=== PATIENT | female | born 1965 | race African-American/Black ===

== ENCOUNTER 2017-08-17 12:23 | Observation (INO) | payer OTHER ==
--- NOTE | 2017-08-17 12:51 | PDOC ---
History of Present Illness - General Chief Complaint: Chest Pain Stated Complaint: CHEST PAIN Time Seen by Provider: 08/17/17 12:51 - History of Present Illness Initial Comments: 08/17/17 15:34 " The patient is a 52 year old female, with significant past medical history of HTN, partial mastectomy, who presents to the emergency room complaining of 2 weeks of intermittent chest pain and SOB. Two weeks ago, she visited her PCP, Dr. Giovany Barrera, in the office for chest pain and was told that she had an enlarged heart. She was told to follow up with cardiology (which she has not done yet) and was given omeprazole because the pain felt like gas. The chest pain resolved until two nights ago, when she experienced 1 episode of chest pain across the whole chest that went away after a couple of minutes. Around 3: 00am this morning, the chest pain woke her up from sleep and has been constant since. It feels like a pressure across her whole chest and is nonradiating. The pain is exacerbated when taking a deep breath. She notes that she has also been experiencing SOB that occurs when walking, which she notes is very unusual for her as she does a lot of walking. She denies lower extremity swelling, but notes that her arms are more puffy than usual. Denies fever, chills, sweats, nausea, vomiting. Denies palpitations. Denies cough Denies leg swelling. Denies recent travel. Allergies: penicillin, seasonal allergies Social history: tobacco use. Family history: Mother had an MO in her 30s. Maternal grandmother also had heart disease. PCP: Dr. Giovany Barrera " Past History - Past Medical History Allergies/Adverse Reactions: Allergies Allergy/AdvReac Type Severity Reaction Status Date / Time Penicillins Allergy Severe Difficulty Verified 08/17/17 12:35 Breathing Home Medications: Ambulatory Orders Telmisartan [Micardis] 80 mg PO DAILY 12/27/12 Omeprazole 20 mg PO DAILY 08/17/17 Anemia: No Asthma: No Cancer: Yes (R BREAST) Cardiac Disorders: No CVA: No COPD: No CHF: No Dementia: No Diabetes: No GI Disorders: No Disorders: No HTN: Yes Hypercholesterolemia: No Liver Disease: No Seizures: No Thyroid Disease: Yes - Surgical History Abdominal Surgery: No Appendectomy: No Cardiac Surgery: Yes Lung Surgery: No Neurologic Surgery: No - Immunization History Immunization Up to Date: Yes - Suicide/Smoking/Psychosocial Hx Smoking Status: Yes Smoking History: Current every day smoker Have you smoked in the past 12 months: No Number of Cigarettes Smoked Daily: 3 Information on smoking cessation initiated: No 'Breaking Loose' booklet given: 03/13/13 Hx Alcohol Use: Yes (SOCIAL) Drug/Substance Use Hx: No Substance Use Type: Alcohol Hx Substance Use Treatment: No Review of Systems - Review of Systems Comments:: 08/17/17 15:34 GENERAL/CONSTITUTIONAL: No fever or chills. No weakness. HEAD, EYES, EARS, NOSE AND THROAT: No change in vision. No ear pain or discharge. No sore throat. GASTROINTESTINAL: No nausea, vomiting, diarrhea or constipation. GENITOURINARY: No dysuria, frequency, or change in urination. CARDIOVASCULAR: +chest pain, SOB. RESPIRATORY: No cough, wheezing, or hemoptysis. MUSCULOSKELETAL: No joint or muscle swelling or pain. No neck or back pain. SKIN: No rash NEUROLOGIC: No headache, vertigo, loss of consciousness, or change in strength/ sensation. ENDOCRINE: No increased thirst. No abnormal weight change. HEMATOLOGIC/LYMPHATIC: No anemia, easy bleeding, or history of blood clots. ALLERGIC/IMMUNOLOGIC: No hives or skin allergy. *Physical Exam - Vital Signs Last Vital Signs Temp Pulse Resp BP Pulse Ox 98.4 F 89 20 127/95 100 08/17/17 12:32 08/17/17 12:32 08/17/17 12:32 08/17/17 12:32 08/17/17 12:32 - Physical Exam Comments: 08/17/17 15:35 GENERAL: Awake, alert, and fully oriented, in no acute distress HEAD: No signs of trauma EYES: PERRLA, EOMI, sclera anicteric, conjunctiva clear ENT: Auricles normal inspection, hearing grossly normal, nares patent, oropharynx clear without exudates. Moist mucosa NECK: Normal ROM, supple, no lymphadenopathy, JVD, or masses LUNGS: Breath sounds equal, clear to auscultation bilaterally. No wheezes, and no crackles HEART: Regular rate and rhythm, normal S1 and S2, no murmurs, rubs or gallops ABDOMEN: Soft, nontender, normoactive bowel sounds. No guarding, no rebound. No masses EXTREMITIES: Normal range of motion, no edema. No clubbing or cyanosis. No cords, erythema, or tenderness BACK: No midline spinal tendernes in cervial/throacic/lumbar region NEUROLOGICAL: Normal speech, cranial nerves intact, negative pronator drift, 5/ 5 strength in all 4 extremities, normal sensation to light touch in all 4 extremities, normal cerebellar exam, normal gait, normal reflexes and tone SKIN: Warm, Dry, normal turgor, no rashes or lesions noted. Heart Score/ECG Review - History History: Moderately suspicious - Electrocardiogram EKG: Normal - Age Age: 45-65 - Risk Factors Risk Factors Heart Score: Yes Hx Hypertension, Yes Smoking History, Yes Positive family hx of cardiac disease, Yes Hx Obesity Based on the list above the patient has:: >/=3 risk factors or Hx atherosclerotic disease - Troponin Troponin: </= normal limit - Score Heart Score - Total: 4 #1 08/17/17 15:36 Twelve-lead EKG was performed and reviewed by me. NSR, normal axis and intervals , no DEEP, no TWI ED Treatment Course - LABORATORY CBC & Chemistry Diagram: 08/17/17 14:15 08/17/17 14:15 Medical Decision Making - Medical Decision Making 08/17/17 13:37 52yo F with multiple risk factors for ACS p/w CP on and off, but now constant since last night. Vitals unremarkable. Exam unremarkable. EKG non ischemic. HEart score is 4. -monitor -labs -asa -admit 08/17/17 15:[address] Membreno, pt will be admitted to her under tele. She requests we c/ s Dr. Valdivia, he has been paged, awaiting call back. Case discussed in detail with admitting physician including history, physical exam and ancillary studies. Admitting physician has assumed care for the patient, will follow all pending diagnostics and will complete the evaluation and treatment. *DC/Admit/Observation/Transfer Diagnosis at time of Disposition: Chest pain Qualifiers: Chest pain type: unspecified Qualified Code(s): R07.9 - Chest pain, unspecified - Discharge Dispostion Condition at time of disposition: Stable Admit: Yes - Attestations Physician Attestion: 08/17/17 15:46 I, Dr. Antonio Sahu MD, attest that this document has been prepared under my direction and personally reviewed by me in its entirety. I further attest, that it accurately reflects all work, treatment, procedures and medical decision -making performed by me.
[2017-08-17 14:40] LABS: BASOPHIL 1.1 % (0-2.0); EOSINOPHIL 3.3 % (0-4.5); MCH 28.5 pg (25.7-33.7); MEAN CELL VOLUME 86.4 fl (80-96); MEAN PLT VOLUME 8.1 fl (7.5-11.1); PLATELET COUNT 219 K/MM3 (134-434); RDW 13.8 % (11.6-15.6); WHITE BLOOD COUNT 6.7 K/mm3 (4.0-10.0)
[2017-08-17 14:54] LABS: ALBUMIN 3.4 g/dl (3.4-5.0); ANION GAP 8 (8-16); BILIRUBIN,TOTAL 0.7 mg/dL (0.2-1.0); CALCIUM 9.1 mg/dL (8.5-10.1); CO2 28 mmol/L (21-32); CREATININE 0.6 mg/dL (0.55-1.02); GLUCOSE,RANDOM 96 mg/dL (74-106); SGOT/AST 7 U/L (15-37); SGPT/ALT 19 U/L (12-78); TOT PROT 6.7 g/dl (6.4-8.2)
[2017-08-17 14:57] LABS: ALK PHOS 46 U/L (45-117); TROPONIN I < 0.02 ng/ml (0.00-0.05)
[2017-08-17 15:19] LABS: THYROID STIMULATING HORMONE 0.51 uIU/ml (0.358-3.74)
[2017-08-17] MEDS ORDERED: ASPIRIN 325 MG TABLET PO ONE (15:32)
[2017-08-17] MEDS ORDERED: ASPIRIN 325 MG TABLET ONE (15:41)
[2017-08-17] MEDS ORDERED: FLU VACCINE QUAD 60 MCG/0.5 ML (MDV 17-18) IM ONE (19:11)
[2017-08-17 19:12] VITALS: BMI 30.2
--- NOTE | 2017-08-18 01:59 | HP ---
Admitting History and Physical - Admission History of Present Illness: Pt is a 52 y/o female w/ PMH significant for HTN who presented to the of substernal chest pain wc radiates across her chest. This has been going on for the past 2 weeks and was recently started on prilosec wc pt states has not made a difference. This chest pain also feels like someone sitting on her ches and it is not associated w/ any palpitations however she has noticed she also has decreased exercise tolerance probably due to her dyspnea. Pt is a smoker about 1 /2 PPD. History Source: Patient - Past Medical History Cardiovascular: Yes: HTN - Past Surgical History Past Surgical History: Yes: Additional Past Surgical History: Partial hysterectomy Partial rt mastectomy due to family h/o breast ca (+ braca gene) - Smoking History Smoking history: Current every day smoker Have you smoked in the past 12 months: Yes Aproximately how many cigarettes per day: 3 - Alcohol/Substance Use Hx Alcohol Use: Yes (SOCIAL) - Social History Usual Living Arrangement: Yes: With Spouse Home Medications - Allergies Allergies/Adverse Reactions: Allergies Allergy/AdvReac Type Severity Reaction Status Date / Time Penicillins Allergy Severe Difficulty Verified 08/17/17 12:35 Breathing - Home Medications Home Medications: Ambulatory Orders Telmisartan [Micardis] 80 mg PO DAILY 12/27/12 Omeprazole 20 mg PO DAILY 08/17/17 Family Disease History - Family Disease History Family History: Unremarkable Family Disease History: Heart Disease: Grandparent, Mother, CA: Mother, Sister Review of Systems - Review of Systems Constitutional: reports: Loss of Appetite Eyes: reports: No Symptoms HENT: reports: No Symptoms Neck: reports: No Symptoms Cardiovascular: reports: No Symptoms Respiratory: reports: No Symptoms Gastrointestinal: reports: No Symptoms Genitourinary: reports: Lesions Musculoskeletal: reports: No Symptoms, Muscle Pain Integumentary: reports: No Symptoms Physical Examination Vital Signs: Vital Signs Temperature 98.4 F 08/17/17 12:32 Pulse Rate 78 08/17/17 21:30 Respiratory Rate 18 08/17/17 21:30 Blood Pressure 146/92 08/17/17 21:30 O2 Sat by Pulse Oximetry (%) 96 08/17/17 21:30 Constitutional: Yes: Well Nourished Eyes: Yes: WNL HENT: Yes: WNL Neck: Yes: WNL, Supple Cardiovascular: Yes: WNL, Regular Rate and Rhythm Respiratory: Yes: WNL, Regular, CTA Bilaterally Gastrointestinal: Yes: WNL, Normal Bowel Sounds, Soft Breast(s): Yes: WNL, Nipple Inversion Problem List - Problems (1) Chest pain Assessment/Plan: Admit to tele Serial cpk/troponin to r/o ACS ASA Check lipid profile Check echo Cardio consult Risk factors for CAD include: Pt has (+) family h/o heart dz(mother [place] in her 30's) H/O HTN (+) tobacco use Code(s): R07.9 - CHEST PAIN, UNSPECIFIED Qualifiers: Chest pain type: unspecified Qualified Code(s): R07.9 - Chest pain, unspecified (2) HTN (hypertension) Assessment/Plan: Cont antihypertensive Check echo Code(s): I10 - ESSENTIAL (PRIMARY) HYPERTENSION
[2017-08-18 03:23] LABS: CPK 83 IU/L (26-192)
[2017-08-18 03:24] LABS: TROPONIN I < 0.02 ng/ml (0.00-0.05)
[2017-08-18 07:00] LABS: BASOPHIL 0.6 % (0-2.0); EOSINOPHIL 3.5 % (0-4.5); MCH 28.1 pg (25.7-33.7); MCHC 32.7 g/dl (32.0-36.0); MEAN PLT VOLUME 7.8 fl (7.5-11.1); NEUTROPHILS 59.7 % (42.8-82.8); PLATELET COUNT 215 K/MM3 (134-434); RDW 13.8 % (11.6-15.6)
[2017-08-18 07:25] LABS: ALBUMIN 3.5 g/dl (3.4-5.0); ANION GAP 5 (8-16); CALCIUM 8.7 mg/dL (8.5-10.1); CO2 28 mmol/L (21-32); CREATININE 0.5 mg/dL (0.55-1.02); GLUCOSE,RANDOM 105 mg/dL (74-106); SGOT/AST 11 U/L (15-37); SGPT/ALT 21 U/L (12-78)
[2017-08-18 07:27] LABS: ALK PHOS 43 U/L (45-117); BILIRUBIN,TOTAL 0.6 mg/dL (0.2-1.0); TOT PROT 6.8 g/dl (6.4-8.2)
--- NOTE | 2017-08-18 08:28 | PN ---
Progress Note (short form) - Note Progress Note: Consult Dictated HTN Atypical CP Smoking history REC: 3rd enzyme Echo Stress MIBI later today ASA Further reccs pending above diagnostic w/u
[2017-08-18] MEDS ORDERED: PANTOPRAZOLE 40 MG TABLET (FP) ONE (08:56)
[2017-08-18] MEDS ORDERED: ASPIRIN COATED 81 MG TABLET.EC ONE (08:57)
[2017-08-18] MEDS ORDERED: VALSARTAN 160 MG TABLET (UD) PO SCH (10:00)
[2017-08-18] MEDS ORDERED: PANTOPRAZOLE 20 MG TABLET (FP) PO SCH (10:00)
[2017-08-18] MEDS ORDERED: ASPIRIN COATED 81 MG TABLET.EC PO SCH (10:00)
[2017-08-18 11:01] LABS: CHOLESTEROL 146 mg/dL (50-200)
--- NOTE | 2017-08-18 11:39 | CONS ---
CARDIOLOGY CONSULTATION DATE OF CONSULTATION: 08/18/[address] Membreno for chest pain. The patient is a 52-year-old female, history of breast cancer, status post partial mastectomy, and chronic treated hypertension, who presented to the emergency room with 2 weeks of shortness of breath with exertion and an episode of substernal chest pressure which occurred last night described as chest tightness worse with positional change. She denies nausea, vomiting or diaphoresis. She has had no exertional chest pain, palpitations, PND, orthopnea or syncope. She has no prior cardiac history, including GA or prior revascularization. She did undergo cardiac catheterization approximately 10 years ago in [place] which she describes as nonobstructive - referred by her primary MD for an enlarged heart. PAST MEDICAL HISTORY: Includes hypertension, breast cancer, status post partial mastectomy 3 years ago, gastroesophageal reflux. ALLERGIES: She is allergic to PENICILLIN. HOME MEDICATIONS: Include Micardis 80 mg daily and omeprazole 20 mg daily. FAMILY HISTORY: Significant for breast cancer in her mother and coronary disease also in her mother. SOCIAL HISTORY: Smokes 1 cigarette a day. Denies illicit drug use. Drinks alcohol socially. 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 PHYSICAL EXAMINATION: Vital signs: Afebrile, temperature 97.8, pulse 74 and regular, blood pressure 120/60, O2 of 99 on room air. Eyes: Anicteric. Neck: No bruits. Heart: S1-2, regular. No murmurs. Chest: Clear. Abdomen: Soft. Nontender. Extremities: No edema. EKG showed sinus, at 81 beats per minute, with no acute changes. Chest x-ray was normal. CBC normal. D-dimer less than 200. Basic metabolic panel is normal with 2 negative cardiac enzymes, negative lipase. Third enzyme will be due in several hours. IMPRESSION: A 52-year-old female with history of hypertension presents with chest pain syndrome, atypical features, with several risk factors including hypertension and smoking. PLAN: Third enzyme at 9 a.m. Continue aspirin. Echocardiogram for evaluation of EF and wall motion. Plan for a nuclear stress test later today, after third enzyme is negative. If above workup is negative, the patient may be discharged from a cardiac perspective with outpatient followup. Thank you for the consultation. LUIS VELEZ M.D. [id number]
--- NOTE | 2017-08-18 14:41 | EKG ---
Test Reason : Blood Pressure : / mmHG Vent. Rate : 081 BPM Atrial Rate : 081 BPM P-R Int : 154 ms QRS Dur : 078 ms QT Int : 412 ms P-R-T Axes : 068 026 037 degrees QTc Int : 478 ms NORMAL SINUS RHYTHM NORMAL ECG WHEN COMPARED WITH ECG OF 31-AUG-2016 15:22, NO SIGNIFICANT CHANGE WAS FOUND Confirmed by BAY MAURICE MD ([id number]) on 08/18/2017 2:41:05 PM Referred By: Confirmed By:BAY MAURICE MD
[2017-08-18 14:56] VITALS: BP 138/90; PULSE 70; TEMP 98
--- NOTE | 2017-08-18 15:19 | DS ---
Physical Examination Vital Signs: Vital Signs Temperature 98 F 08/18/17 14:55 Pulse Rate 70 08/18/17 14:55 Respiratory Rate 18 08/18/17 14:55 Blood Pressure 138/90 08/18/17 14:55 O2 Sat by Pulse Oximetry (%) 98 08/18/17 12:00 Labs: CBC, BMP 08/18/17 06:15 08/18/17 06:15 Discharge Summary Reason For Visit: CHEST PAIN Current Active Problems Chest pain (Acute) HTN (hypertension) (Acute) Condition: Good - Instructions Diet, Activity, Other Instructions: 2 gram sodium diet See Dr Barrera in 1 week [phone] Referrals: Giovany Barrera MD [Primary Care Provider] - Disposition: HOME - Home Medications Comprehensive Discharge Medication List: Ambulatory Orders Telmisartan [Micardis] 80 mg PO DAILY 12/27/12 Omeprazole 20 mg PO DAILY 08/17/17
== END 2017-08-18 18:41 | disposition home or self-care (01) ==
LOC: JER 12:23 → INTOOBSV 15:46 → UNDOADMOB 15:46 → JERBED 15:46 → J4W 08-18 14:30 → JERBED 08-18 14:30 → J4W 08-18 16:18 → JERBED 08-18 16:18
PROVIDERS: ADMIT Internal Medicine; ATTEND Internal Medicine
DX: R07.9 Chest pain, unspecified (principal); I10 Essential (primary) hypertension; F17.210 Nicotine dependence, cigarettes, uncomplicated; Z88.0 Allergy status to penicillin; Z90.11 Acquired absence of right breast and nipple; Z85.3 Personal history of malignant neoplasm of breast; Z80.3 Family history of malignant neoplasm of breast
CPT/HCPCS: 36415; 71020-TC; 76700-TC; 78452-TC; 80053; 80061; 83690; 83721; 83735; 83880; 84443; 84484; 85025; 85379; 87086; 90688; 93005; 93010; 93017; 93306-TC; 99285-25; A9502; G0378

== ENCOUNTER → 2019-02-27 | Day surgery (SDC) | payer OTHER ==
--- NOTE | 2019-02-28 16:07 | PATH ---
Cytology Non-Gynecological Report Patient Name: BIJAN WINN [facility]. Rec. #: [id number] /Age/Gender: 1965 (Age: 53) / F Account: [id number] Location: RADIOLOGY INTER Taken: 02/27/2019 Received: 02/27/2019 Reported: 02/28/2019 Physicians: Maxine Sosa M.D. Specimen(s) Received ISTHMUS Clinical History Isthmus nodule, 2.22 x 1.67 x 2.45 cm Final Diagnosis THYROID, ISTHMUS, FINE NEEDLE ASPIRATION: SATISFACTORY FOR EVALUATION. BETHESDA CLASS II: BENIGN. CYTOLOGIC FINDINGS ARE CONSISTENT WITH A BENIGN FOLLICULAR NODULE. SMALL FOLLICULAR CELLS DISPERSED MACRO AND MICRO-FOLLICLES IN A BACKGROUND OF RARE MACROPHAGES AND COLLOID PRESENT. Electronically Signed Bibi Olmos M.D. Gross Description Received are eight direct smears, four of which are air-dried and Diff-Quik stained, and four of which are alcohol fixed and Pap stained. Also received is 20 ml of bloody formalin from which one cellblock is prepared.
== END | disposition home or self-care (01) ==
LOC: JRADIR 10:10
PROVIDERS: ATTEND Internal Medicine Endocrinology, Diabetes & Metabolism
PROC: 0G9K3ZX Drainage of Thyroid Gland, Percutaneous Approach, Diagnostic (ICD-10-PCS; principal; 2019-02-27)
DX: E04.1 Nontoxic single thyroid nodule (principal)
CPT/HCPCS: 76942; 88173; 88305-TC

== ENCOUNTER 2019-04-07 08:54 | Emergency (ER) | payer OTHER ==
[2019-04-07 09:00] VITALS: BP 167/100; PULSE 90; TEMP 97.8; BMI 32.9
--- NOTE | 2019-04-07 09:30 | PDOC ---
History of Present Illness - General Chief Complaint: Pain Stated Complaint: UPPER BACK PAIN Time Seen by Provider: 04/07/19 09:16 History Source: Patient Exam Limitations: No Limitations - History of Present Illness Initial Comments: 04/07/19 09:33 With complaints of severe muscle strain, not to her upper left back. Denies knowledge of any changes in exercise or activity although had a thyroid biopsy a few days ago and may have had tension without procedure. Has taken ibuprofen with minimal resolved. Denies fevers, chest pain palpitations, no URI symptoms. States is primarily in the muscle groups and the left side. 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 Occurred: reports: last week Severity: reports: moderate Pain Location: reports: back Method of Injury: Yes: unknown Modifying Factors: improves with: None Associated Symptoms (Fall): denies symptoms Past History - Travel Traveled outside of the country in the last 30 days: No Close contact w/someone who was outside of country & ill: No - Past Medical History Allergies/Adverse Reactions: Allergies Allergy/AdvReac Type Severity Reaction Status Date / Time Penicillins Allergy Severe Difficulty Verified 04/07/19 08:56 Breathing Home Medications: Ambulatory Orders Telmisartan [Micardis] 80 mg PO DAILY 12/27/12 Omeprazole 20 mg PO DAILY 08/17/17 Cyclobenzaprine HCl 10 mg PO Q8H PRN #14 tablet 04/07/19 Naproxen [Naprosyn -] 500 mg PO BID #30 tablet 04/07/19 Tamsulosin HCl [Flomax] 0.4 mg PO DAILY 04/07/19 Anemia: No Asthma: No Cancer: Yes (R BREAST) Cardiac Disorders: No CVA: No COPD: No CHF: No Dementia: No Diabetes: No GI Disorders: No Disorders: No HTN: Yes Hypercholesterolemia: No Liver Disease: No Seizures: No Thyroid Disease: Yes - Surgical History Abdominal Surgery: No Appendectomy: No Cardiac Surgery: Yes Lung Surgery: No Neurologic Surgery: No - Immunization History Immunization Up to Date: Yes - Suicide/Smoking/Psychosocial Hx Smoking Status: Yes Smoking History: Current every day smoker Have you smoked in the past 12 months: Yes Number of Cigarettes Smoked Daily: 3 Information on smoking cessation initiated: No 'Breaking Loose' booklet given: 03/13/13 Hx Alcohol Use: Yes (socially) Drug/Substance Use Hx: No Substance Use Type: Alcohol Hx Substance Use Treatment: No Trauma Specific PMHX - Complaint Specific PMHX Back Injury: No Review of Systems - Review of Systems Able to Perform ROS?: Yes Is the patient limited Sami proficient: Yes Constitutional: Yes: See HPI. No: Symptoms Reported HEENTM: Yes: See HPI. No: Symptoms Reported Respiratory: No: Symptoms reported Musculoskeletal: Yes: Symptoms Reported, See HPI, Back Pain, Joint Swelling, Muscle Pain *Physical Exam - Vital Signs Last Vital Signs Temp Pulse Resp BP Pulse Ox 97.8 F 90 20 167/100 100 04/07/19 08:57 04/07/19 08:57 04/07/19 08:57 04/07/19 08:57 04/07/19 08:57 - Physical Exam General Appearance: Yes: Nourished, Appropriately Dressed, Apparent Distress, Mild Distress HEENT: positive: ARMANDO, Normal ENT Inspection, TMs Normal, Pharynx Normal Neck: positive: Tender, Supple, Other (tender tight musculature of the paravertebral spinous muscles and thoracic spine. Has no true bone or vertebral spine tenderness. Range of motion to neck is intact. Has tense tight musculature to the scapular area primarily left side. With pressure reproduces pain to shoulder and upper arm.) Respiratory/Chest: positive: Lungs Clear, Normal Breath Sounds Gastrointestinal/Abdominal: positive: Soft. negative: Tender Musculoskeletal: positive: Normal Inspection. 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-XII NML intact, Fully Oriented, Alert, Normal Mood/ Affect, Normal Response, Motor Strength 5/5 Progress Note - Progress Note Progress Note: Upper back strain, will treat with NSAIDs and cyclobenzaprine *DC/Admit/Observation/Transfer Diagnosis at time of Disposition: Upper back strain Qualifiers: Encounter type: initial encounter Qualified Code(s): S29.012A - Strain of muscle and tendon of back wall of thorax, initial encounter - Discharge Dispostion Disposition: HOME Condition at time of disposition: Stable Decision to Admit order: No - Prescriptions Prescriptions: Cyclobenzaprine HCl 10 mg PO Q8H PRN #14 tablet PRN Reason: spasm Naproxen [Naprosyn -] 500 mg PO BID #30 tablet - Referrals Referrals: Giovany Barrera MD [Primary Care Provider] - - Patient Instructions Printed Discharge Instructions: DI for Muscle Strain Additional Instructions: Rest, no heavy lifting or exercise until pain is resolved Hot soaks to neck and low back as often as possible/hot showers or Jacuzzis No massage or therapy until spasm is gone Continue Naprosyn 500 mg tablet, 1 tablet every 8 hours for the next 3 days then as needed for pain and swelling Cyclobenzaprine 1-10mg every 8 hours as needed for spasm If not significant improvement within 24 hours with medication and rest regime, followup with private physician for change in medications and /or therapy. - Post Discharge Activity Forms/Work/School Notes: Back to Work
== END 2019-04-07 09:39 | disposition home or self-care (01) ==
LOC: JERFT 08:54
DX: S29.012A Strain of muscle and tendon of back wall of thorax, initial encounter (principal); X58.XXXA Exposure to other specified factors, initial encounter; Y93.89 Activity, other specified; Y92.89 Other specified places as the place of occurrence of the external cause; Z85.3 Personal history of malignant neoplasm of breast; I10 Essential (primary) hypertension; Z72.0 Tobacco use
CPT/HCPCS: 99281-25

== ENCOUNTER 2024-08-30 08:49 | Emergency (ER) | payer OTHER ==
[2024-08-30 09:02] VITALS: BP 173/101; PULSE 86; RESP 18; TEMP 97.7; BMI 31.4
[2024-08-30 10:22] LABS: BASO % 1.3 % (0-2.0); EOS % 3.5 % (0-4.5); HEMATOCRIT 44.5 % (32.4-45.2); HEMOGLOBIN 14.7 GM/dL (10.7-15.3); LYMPH % 17.8 % (8-40); MCH 28.4 pg (25.7-33.7); MCHC 33.1 g/dl (32.0-36.0); MEAN CELL VOLUME 85.9 fl (80-96); MONO % 8.4 % (3.8-10.2); PLATELET COUNT 233 10^3/uL (134-434); RBC 5.18 M/mm3 (3.60-5.2); RDW 14.2 % (11.6-15.6); WHITE BLOOD COUNT 5.6 K/mm3 (4.0-10.0)
[2024-08-30 10:40] LABS: POTASSIUM 4.4 mmol/L (3.5-5.1)
[2024-08-30 10:43] LABS: CALCIUM 9.7 mg/dL (8.5-10.1)
[2024-08-30 10:44] LABS: ALBUMIN 3.9 g/dl (3.4-5.0)
[2024-08-30 10:47] LABS: CREATININE 0.8 mg/dL (0.55-1.3)
[2024-08-30 10:49] LABS: BILIRUBIN,TOTAL 0.9 mg/dL (0.2-1); TOT PROT 7.3 g/dl (6.4-8.2)
[2024-08-30 10:52] LABS: N-TERMINAL BNP 52.4 pg/ml (5-125)
[2024-08-30] MEDS ORDERED: AZITHROMYCIN IVPB 500 MG in DEXTROSE 5%-WATER - 250 ML IVPB ONE (11:00)
[2024-08-30] MEDS ORDERED: ALBUTEROL SO4 2.5/IPRATROPIUM 0.5 INH SOL 3 ML VIAL.NEB. NEB ONE ×2 (11:12→11:41)
[2024-08-30] MEDS ORDERED: AZITHROMYCIN 500 MG TABLET ONE (11:22)
[2024-08-30] MEDS: AZITHROMYCIN 250 MG TABLET PO ONE (11:31)
[2024-08-30] MEDS: ALBUTEROL SO4 2.5/IPRATROPIUM 0.5 INH SOL 3 ML VIAL.NEB. NEB ONE (11:46)
== END 2024-08-30 12:34 | disposition home or self-care (01) ==
LOC: JER 08:49
PROC: 3E0F7GC Introduction of Other Therapeutic Substance into Respiratory Tract, Via Natural or Artificial Opening (ICD-10-PCS; principal; 2024-08-30)
DX: R05.9 Cough, unspecified (principal); R53.1 Weakness; Z20.822 Contact with and (suspected) exposure to COVID-19
CPT/HCPCS: 0241U-QW; 36415; 71045-TC-FY; 80053; 83880; 85025; 93005; 93010; 99285-25

== ENCOUNTER 2024-11-28 09:27 | Emergency (ER) | payer OTHER ==
[2024-11-28 09:42] VITALS: BMI 32.4
[2024-11-28] MEDS ORDERED: ALBUTEROL SO4 2.5/IPRATROPIUM 0.5 INH SOL 3 ML VIAL.NEB. NEB ONE (12:23)
[2024-11-28] MEDS: ALBUTEROL SO4 2.5/IPRATROPIUM 0.5 INH SOL 3 ML VIAL.NEB. NEB SCH (12:35)
[2024-11-28] MEDS: ACETAMINOPHEN 1000 MG/100 ML BAG IVPB ONE (12:35)
[2024-11-28] MEDS ORDERED: ACETAMINOPHEN INJECTION 100 ML ONE (12:45)
[2024-11-28 12:49] LABS: HEMATOCRIT 48.1 % (32.4-45.2); HEMOGLOBIN 16.1 GM/dL (10.7-15.3); MCH 28.4 pg (25.7-33.7); MCHC 33.5 g/dl (32.0-36.0); MEAN CELL VOLUME 84.7 fl (80-96); MEAN PLT VOLUME 7.7 fl (7.5-11.1); PLATELET COUNT 231 10^3/uL (134-434); RBC 5.68 M/mm3 (3.60-5.2); WHITE BLOOD COUNT 7.4 K/mm3 (4.0-10.0)
[2024-11-28 13:10] LABS: POTASSIUM 3.8 mmol/L (3.5-5.1)
[2024-11-28 13:12] LABS: ALBUMIN 4.3 g/dl (3.4-5.0); BLOOD UREA NITROGEN 22.7 mg/dL (7-18); CALCIUM 9.4 mg/dL (8.5-10.1)
[2024-11-28 13:15] LABS: CREATININE 0.9 mg/dL (0.55-1.3)
[2024-11-28 13:17] LABS: BILIRUBIN,TOTAL 0.8 mg/dL (0.2-1); TOT PROT 8.2 g/dl (6.4-8.2)
[2024-11-28] MEDS ORDERED: methylPREDNISolone NA SUCC 125 MG/2 ML VIAL ONE (13:31)
[2024-11-28] MEDS ORDERED: PSEUDOEPHEDRINE HCL 60 MG TABLET ONE (13:31)
[2024-11-28] MEDS: PSEUDOEPHEDRINE HCL 60 MG TABLET PO ONE (13:37)
[2024-11-28] MEDS: PSEUDOEPHEDRINE HCL 30 MG TABLET PO ONE (13:37)
[2024-11-28] MEDS: methylPREDNISolone NA SUCC 125 MG/2 ML VIAL IVPB ONE (13:37)
[2024-11-28 13:51] VITALS: BP 133/63; PULSE 116; RESP 20; TEMP 98.8
== END 2024-11-28 15:52 | disposition home or self-care (01) ==
LOC: JER 09:27
PROC: 3E033NZ Introduction of Analgesics, Hypnotics, Sedatives into Peripheral Vein, Percutaneous Approach (ICD-10-PCS; principal; 2024-11-28)
PROC: 3E033GC Introduction of Other Therapeutic Substance into Peripheral Vein, Percutaneous Approach (ICD-10-PCS; 2024-11-28)
PROC: 3E0F7GC Introduction of Other Therapeutic Substance into Respiratory Tract, Via Natural or Artificial Opening (ICD-10-PCS; 2024-11-28)
DX: R06.02 Shortness of breath (principal); R09.81 Nasal congestion; R05.9 Cough, unspecified; R07.89 Other chest pain; R50.9 Fever, unspecified; R63.0 Anorexia; M79.10 Myalgia, unspecified site; B97.4 Respiratory syncytial virus as the cause of diseases classified elsewhere; R51.9 Headache, unspecified; Z20.822 Contact with and (suspected) exposure to COVID-19
CPT/HCPCS: 0241U-QW; 36415; 71046-TC-FY; 80053; 85027; 93005; 93010; 99285-25; J0131